=== PATIENT | female | born 1980 | race Caucasian/White ===

== ENCOUNTER 2017-10-29 05:49 | Emergency (ER) | payer OTHER ==
--- NOTE | 2017-10-29 06:01 | PDOC ---
History of Present Illness - General Chief Complaint: Injury Stated Complaint: RT LE PAIN History Source: Patient Exam Limitations: No Limitations - History of Present Illness Initial Comments: 10/29/17 05:55 injured R leg walking up stairs. unable to bear weight 10/29/17 05:56 Timing/Duration: 1/2 hour Severity: moderate Modifying Factors: improves with: other (did not attempt anything) Associated Symptoms: reports: denies symptoms Past History - Past Medical History Allergies/Adverse Reactions: Allergies Allergy/AdvReac Type Severity Reaction Status Date / Time No Known Allergies Allergy Unverified 10/29/17 05:52 Home Medications: Ambulatory Orders NK [No Known Home Medication] 10/29/17 Comment:: 10/29/17 05:57 no known medical hx Review of Systems - Review of Systems Able to Perform ROS?: Yes Is the patient limited Prydeinig proficient: No All Other Systems: Reviewed and Negative *Physical Exam - Physical Exam General Appearance: Yes: Nourished HEENT: positive: Normal Voice Neck: negative: Tender Respiratory/Chest: positive: Lungs Clear Cardiovascular: positive: Regular Rhythm Lymphatic: negative: Adenopathy Musculoskeletal: positive: Other (tender diffusely over ankle and knee) Extremity: positive: Normal Capillary Refill Integumentary: positive: Normal Color Neurologic: positive: Fully Oriented, Motor Strength 5/5 Medical Decision Making - Medical Decision Making 10/29/17 05:59 ms pain s/p unclear mechanism of injury walking up stairs refusing analgesia image *DC/Admit/Observation/Transfer Diagnosis at time of Disposition: Musculoskeletal pain - Discharge Dispostion Condition at time of disposition: Stable - Referrals - Patient Instructions - Post Discharge Activity
[2017-10-29 06:04] VITALS: BP 115/78; PULSE 108; TEMP 98.6; BMI 23.4
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
== END 2017-10-29 09:06 | disposition home or self-care (01) ==
LOC: FER 05:49
DX: M79.1 Myalgia (principal)
CPT/HCPCS: 73560-TC-RT; 73610-TC-RT; 73630-TC-RT; 99281-25

== ENCOUNTER 2018-07-07 01:14 | Emergency (ER) | payer OTHER ==
[2018-07-07] MEDS ORDERED: SODIUM CHLORIDE 1,000 ML IV STA (01:19)
[2018-07-07] MEDS ORDERED: ACETAMINOPHEN 1000 MG/100 ML VIAL (NON FORMULARY) IVPB ONE (01:19)
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
[2018-07-07 01:31] VITALS: BP 121/85; PULSE 112; TEMP 98.4; BMI 23.4
[2018-07-07] MEDS ORDERED: ACETAMINOPHEN INJECTION 100 ML IVPB ONE (01:31)
[2018-07-07 02:07] LABS: BASO % 0.8 % (0-2.0); EOS % 0.4 % (0-4.5); HEMATOCRIT 43.3 % (32.4-45.2); HEMOGLOBIN 14.7 GM/dL (10.7-15.3); LYMPH % 30.8 % (8-40); MCH 31.2 pg (25.7-33.7); MCHC 33.9 g/dl (32.0-36.0); MEAN CELL VOLUME 91.8 fl (80-96); MEAN PLT VOLUME 7.9 fl (7.5-11.1); MONO % 7.6 % (3.8-10.2); NEUT % 60.4 % (42.8-82.8); PLATELET COUNT 324 K/MM3 (134-434); RBC 4.72 M/mm3 (3.60-5.2); RDW 12.4 % (11.6-15.6); WHITE BLOOD COUNT 4.6 K/mm3 (4.0-10.0)
[2018-07-07 02:33] LABS: ALBUMIN 4.2 g/dl (3.4-5.0); ALK PHOS 84 U/L (45-117); ANION GAP 11 MMOL/L (8-16); BILIRUBIN,TOTAL 0.3 mg/dL (0.2-1); BLOOD UREA NITROGEN 14 mg/dL (7-18); CALCIUM 9.6 mg/dL (8.5-10.1); CHLORIDE 108 mmol/L (98-107); CO2 22 mmol/L (21-32); CREATININE 0.8 mg/dL (0.55-1.3); GLUCOSE,RANDOM 118 mg/dL (74-106); LIPASE 100 U/L (73-393); POTASSIUM 3.9 mmol/L (3.5-5.1); SGOT/AST 17 U/L (15-37); SGPT/ALT 27 U/L (13-61); SODIUM 141 mmol/L (136-145); TOT PROT 8.3 g/dl (6.4-8.2)
[2018-07-07] MEDS ORDERED: NAPROXEN 500 MG TABLET (FP) PO ONE (03:37)
[2018-07-07] MEDS ORDERED: NAPROXEN 250 MG TABLET (FP) ONE (03:39)
== END 2018-07-07 03:42 | disposition home or self-care (01) ==
LOC: FER 01:14
PROC: 3E033NZ Introduction of Analgesics, Hypnotics, Sedatives into Peripheral Vein, Percutaneous Approach (ICD-10-PCS; principal; 2018-07-07)
PROC: 3E0337Z Introduction of Electrolytic and Water Balance Substance into Peripheral Vein, Percutaneous Approach (ICD-10-PCS; 2018-07-07)
DX: R10.9 Unspecified abdominal pain (principal); Y04.0XXA Assault by unarmed brawl or fight, initial encounter; Y93.89 Activity, other specified; Y92.009 Unspecified place in unspecified non-institutional (private) residence as the place of occurrence of the external cause
CPT/HCPCS: 36415; 74177-TC; 80053; 83690; 84703; 85025; 99283-25; J0131; J7030

== ENCOUNTER 2019-11-14 11:19 | Emergency (ER) | payer OTHER ==
--- NOTE | 2019-11-14 11:24 | PDOC ---
History of Present Illness - History of Present Illness Initial Comments: 39F 11/14/19 11:24 <Jessie Ramos - Last Filed: 11/14/19 11:24> <Danyel Devi - Last Filed: 11/14/19 12:19> - General Chief Complaint: Blood Pressure Problem Stated Complaint: DIZZY,BLUURY VISION HTN Time Seen by Provider: 11/14/19 11:24 Past History - Past Medical History COPD: No Hypercholesterolemia: Yes - Psycho Social/Smoking Cessation Hx Smoking History: Never smoked <Jessie Ramos - Last Filed: 11/14/19 11:24> <Danyel Devi - Last Filed: 11/14/19 12:19> - Past Medical History Allergies/Adverse Reactions: Allergies Allergy/AdvReac Type Severity Reaction Status Date / Time No Known Allergies Allergy Verified 11/14/19 11:20 Home Medications: Ambulatory Orders Albuterol Sulfate [Proair Respiclick] 90 mcg IH DAILY 11/14/19 Fluticasone Propionate [Flovent Hfa] 110 mcg IH DAILY 11/14/19 Gabapentin 300 mg PO DAILY 11/14/19 Losartan 50Mg/Hctz 12.5MG [Hyzaar -] 1 tab PO DAILY #14 tablet 11/14/19 *Physical Exam - Vital Signs Last Vital Signs Temp Pulse Resp BP Pulse Ox 99 F 77 20 133/106 H 99 11/14/19 11:19 11/14/19 11:19 11/14/19 11:19 11/14/19 11:19 11/14/19 11:19 <Danyel Devi - Last Filed: 11/14/19 12:19> Discharge <Jessie Ramos - Last Filed: 11/14/19 11:24> - Discharge Information Problems reviewed: Yes - Admission No <Danyel Devi - Last Filed: 11/14/19 12:19> - Discharge Information Clinical Impression/Diagnosis: Hypertension Qualifiers: Hypertension type: unspecified Qualified Code(s): I10 - Essential (primary) hypertension Condition: Improved Disposition: HOME - Additional Discharge Information Prescriptions: Losartan 50Mg/Hctz 12.5MG [Hyzaar -] 1 tab PO DAILY #14 tablet - Patient Discharge Instructions Patient Printed Discharge Instructions: DI for High Blood Pressure Additional Instructions: Low-salt diet, medication as directed, consult primary physician as soon as possible to monitor blood pressure and adjust medication Return to ER if there are further serious symptoms such as chest pain, shortness of breath, nausea, vomiting, perspiring, dizziness or lightheadedness.
[2019-11-14 11:28] VITALS: BP 133/106; PULSE 77; TEMP 99; BMI 27.3
[2019-11-14] MEDS ORDERED: LOSARTAN 50MG/HCTZ 12.5MG 1 TAB (FP) PO ONE (12:16)
--- NOTE | 2019-11-14 12:20 | PDOC ---
History of Present Illness - General Chief Complaint: Blood Pressure Problem Stated Complaint: DIZZY,BLUURY VISION HTN Time Seen by Provider: 11/14/19 11:24 - History of Present Illness Initial Comments: 11/14/19 12:24 Chief complaint: Lightheadedness, ringing in both ears HPI: Above symptoms since this morning, blood pressure was taken at work and found to be in the 180/130 range. Review of systems: Chronic neck pain with radicular symptoms right upper extremity due to rheumatoid arthritis, received a pain management injection yesterday. Pain is not improved. Denies chest pain, shortness of breath, abdominal pain, nausea, vomiting, diarrhea, focal neurologic symptoms in the face or extremities, other than her usual radicular symptoms. Remainder of systems reviewed and negative Past medical history: Rheumatoid arthritis, cervical arthritis with radiculopathy, elevated blood pressure since October 2019. No therapy as yet. One prior without blood pressure problems. Mild asthma maintained on inhaled albuterol/corticosteroid Social/family history reviewed and noncontributory Physical exam: Alert and oriented well-developed well-nourished no acute distress cheerful and cooperative. Symptoms have subsided. Afebrile, blood pressure 133/106. Remainder vital signs normal PERRLA 4 mm, fundi benign with sharp disc margins and good central venous pulsations, no arteriolar narrowing or AV nicking. Visual mckeon intact to confrontation. EOMs full without diplopia ENT clear Neck supple without bruit mass or nodes Chest clear, full breath sounds bilaterally. No rales wheezes or rhonchi CV S1-S2 normal without murmur rub or gallop pulses full and symmetric no JVD or edema no bruits Abdomen soft nontender without mass organomegaly Neurological C2 to 12 intact. Strength full and symmetric. No focal sensorimotor deficits. Cerebellar intact. Gait stable and unimpaired Impression: Elevated blood pressure, sustained since at least October 2019. Mild symptoms this morning probably related to a transient rise. No suggestion of hypertensive urgency or emergency Plan: Patient was instructed to consult family physician within 1 to 2 days for monitoring of blood pressure and considering medication. She stated that she would be more comfortable being treated immediately, and will follow-up as directed. Antihypertensive prescribed and low-salt diet recommended. To follow -up with primary physician in 1 to 2 days. Symptoms have resolved and she is discharged with in no distress to follow-up as directed Past History - Past Medical History Allergies/Adverse Reactions: Allergies Allergy/AdvReac Type Severity Reaction Status Date / Time No Known Allergies Allergy Verified 11/14/19 11:20 Home Medications: Ambulatory Orders Albuterol Sulfate [Proair Respiclick] 90 mcg IH DAILY 11/14/19 Fluticasone Propionate [Flovent Hfa] 110 mcg IH DAILY 11/14/19 Gabapentin 300 mg PO DAILY 11/14/19 Losartan 50Mg/Hctz 12.5MG [Hyzaar -] 1 tab PO DAILY #14 tablet 11/14/19 COPD: No Hypercholesterolemia: Yes - Psycho Social/Smoking Cessation Hx Smoking History: Never smoked Have you smoked in the past 12 months: No Information on smoking cessation initiated: No Hx Alcohol Use: No Drug/Substance Use Hx: No *Physical Exam - Vital Signs Last Vital Signs Temp Pulse Resp BP Pulse Ox 99 F 77 20 133/106 H 99 11/14/19 11:19 11/14/19 11:19 11/14/19 11:19 11/14/19 11:19 11/14/19 11:19 Discharge - Discharge Information Problems reviewed: Yes Clinical Impression/Diagnosis: Hypertension Qualifiers: Hypertension type: unspecified Qualified Code(s): I10 - Essential (primary) hypertension Condition: Improved Disposition: HOME - Admission No - Additional Discharge Information Prescriptions: Losartan 50Mg/Hctz 12.5MG [Hyzaar -] 1 tab PO DAILY #14 tablet - Follow up/Referral - Patient Discharge Instructions Patient Printed Discharge Instructions: DI for High Blood Pressure Additional Instructions: Low-salt diet, medication as directed, consult primary physician as soon as possible to monitor blood pressure and adjust medication Return to ER if there are further serious symptoms such as chest pain, shortness of breath, nausea, vomiting, perspiring, dizziness or lightheadedness. - Post Discharge Activity
[2019-11-14] MEDS ORDERED: IBUPROFEN 600 MG TABLET (FP) PO ONE ×2 (12:29)
== END 2019-11-14 12:43 | disposition home or self-care (01) ==
LOC: FER 11:19
DX: I10 Essential (primary) hypertension (principal); M06.9 Rheumatoid arthritis, unspecified; M46.82 Other specified inflammatory spondylopathies, cervical region; J45.909 Unspecified asthma, uncomplicated
CPT/HCPCS: 99283-25

== ENCOUNTER 2021-11-29 20:16 | Emergency (ER) | payer OTHER ==
[2021-11-29 20:25] VITALS: BP 159/90; PULSE 92; TEMP 99; BMI 27.3
== END 2021-11-29 20:41 | disposition home or self-care (01) ==
LOC: FER 20:16
DX: Z48.00 Encounter for change or removal of nonsurgical wound dressing (principal)
CPT/HCPCS: 99281-25

== ENCOUNTER 2021-12-15 21:44 | Emergency (ER) | payer OTHER ==
[2021-12-15 22:04] VITALS: BP 147/96; PULSE 67; TEMP 98.7; BMI 26.4
[2021-12-15 22:17] LABS: HCG,QUALITATIVE URINE Negative
[2021-12-15] MEDS ORDERED: PANTOPRAZOLE SODIUM 40 MG VIAL IVPB ONE (23:11)
[2021-12-15] MEDS ORDERED: PANTOPRAZOLE SODIUM 40 MG VIAL ONE (23:21)
[2021-12-15 23:40] LABS: ALBUMIN 4.3 g/dl (3.4-5.0); BILIRUBIN,TOTAL 0.8 mg/dl (0.2-1); CALCIUM 9.5 mg/dl (8.5-10); CREATININE 0.7 mg/dl (0.55-1.3); TOT PROT 7.7 g/dl (6.4-8.2)
[2021-12-16 00:29] LABS: BASO % 0.7 % (0-2.0); EOS % 5.7 % (0-4.5); HEMATOCRIT 38.2 % (32.4-45.2); HEMOGLOBIN 13.6 GM/dL (10.7-15.3); LYMPH % 44.1 % (8-40); MCH 31.9 pg (25.7-33.7); MCHC 35.6 g/dl (32.0-36.0); MEAN CELL VOLUME 89.6 fl (80-96); MEAN PLT VOLUME 7.8 fl (7.5-11.1); MONO % 10.2 % (3.8-10.2); NEUT % 39.3 % (42.8-82.8); PLATELET COUNT 261 10^3/uL (134-434); RBC 4.26 M/mm3 (3.60-5.2); RDW 12.1 % (11.6-15.6); WHITE BLOOD COUNT 5.1 K/mm3 (4.0-10.0)
== END 2021-12-16 01:01 | disposition home or self-care (01) ==
LOC: FER 21:44
PROC: 3E033GC Introduction of Other Therapeutic Substance into Peripheral Vein, Percutaneous Approach (ICD-10-PCS; principal; 2021-12-15)
DX: R10.13 Epigastric pain (principal)
CPT/HCPCS: 36415; 74177-TC; 80053; 81003; 81025; 83690; 84703; 85025; 96374; 99285-25; Q9967

== ENCOUNTER 2023-09-12 19:56 | Emergency (ER) | payer OTHER ==
[2023-09-12 20:02] VITALS: BP 148/104; PULSE 88; RESP 16; TEMP 98.6; BMI 26.4
[2023-09-12] MEDS ORDERED: AMOX TR/POT CLAV 875MG/125MG TABLETS (FP) ONE (20:38)
[2023-09-12] MEDS ORDERED: AMOX TR/POT CLAV 875MG/125MG TABLETS (FP) PO ONE (20:48)
== END 2023-09-12 20:55 | disposition home or self-care (01) ==
LOC: FER 19:56
DX: S61.202A Unspecified open wound of right middle finger without damage to nail, initial encounter (principal); R22.31 Localized swelling, mass and lump, right upper limb; M25.541 Pain in joints of right hand; L03.113 Cellulitis of right upper limb; W54.0XXA Bitten by dog, initial encounter
CPT/HCPCS: 99283-25

== ENCOUNTER 2023-10-02 12:11 | Emergency (ER) | payer OTHER ==
[2023-10-02 12:42] VITALS: BP 159/99; PULSE 99; RESP 18; TEMP 98.7; BMI 28.3
[2023-10-02] MEDS ORDERED: ACETAMINOPHEN 325 MG TABLET (FP) PO ONE (12:42)
[2023-10-02] MEDS ORDERED: ACETAMINOPHEN 500 MG TABLET (FP) ONE (12:50)
== END 2023-10-02 17:00 | disposition left against medical advice (07) ==
LOC: FER 12:11
DX: S06.5X9A Traumatic subdural hemorrhage with loss of consciousness of unspecified duration, initial encounter (principal); S20.302A Unspecified superficial injuries of left front wall of thorax, initial encounter; R07.81 Pleurodynia; R42 Dizziness and giddiness; H53.8 Other visual disturbances; R51.9 Headache, unspecified; Y04.8XXA Assault by other bodily force, initial encounter
CPT/HCPCS: 70450-TC; 71101-TC-LT-FY; 99284-25